=== PATIENT | female | born 1935 | race Caucasian/White ===

== ENCOUNTER 2016-04-11 12:34 | Observation (INO) | payer OTHER ==
[2016-04-11] MEDS ORDERED: NORMAL SALINE 10 ML SYRINGE FLUSH IVP PRN ×2 (12:50→14:22)
[2016-04-11] MEDS ORDERED: ASPIRIN 81 MG (BABY) CHEWABLE TABLET PO ONE (12:50)
[2016-04-11] MEDS ORDERED: Sodium Chloride 0.9% 1,000 ML PRIMARY IV ONE (12:50)
[2016-04-11] MEDS ORDERED: ASPIRIN 81 MG (BABY) CHEWABLE TABLET ONE (13:00)
[2016-04-11] MEDS ORDERED: Sodium Chloride 0.9% 1,000 ML ONE (13:00)
[2016-04-11 13:10] LABS: BASOPHILS # (AUTO) 0.04 10*3/UL; BASOPHILS % (AUTO) 0.3 % (0-1); EOSINOPHILS % (AUTO) 0.3 % (0-8); HEMATOCRIT 47.5 % (37.0-47.0); IMM GRAN % (AUTO) 0.2 % (0-5); IMM GRAN# (AUTO) 0.03 10*3/UL; LYMPHOCYTES % (AUTO) 12.3 % (10-50); MEAN CORPUSCULAR HEMOGLOBIN 33.1 PG (27-31); MEAN CORPUSCULAR HGB CONC 33.7 g/dL (33-37); MEAN PLATELET VOLUME 11.5 FL (7.4-12.2); MONOCYTES # (AUTO) 0.41 10*3/UL (0.3-0.8); NEUTROPHILS # (AUTO) 11.64 10*3/UL; NEUTROPHILS % (AUTO) 83.9 % (50-80); RDW COEFFICIENT OF VARIATION 15.9 % (11.5-14.5); RED BLOOD COUNT 4.84 10^6/uL (4.20-5.40); WHITE BLOOD COUNT 13.86 10^3/uL (4.8-10.8)
--- NOTE | 2016-04-11 13:17 | PDOC ---
Chest Pain HPI - General Chief Complaint: Chest Pain Stated Complaint: chest pain Date Seen by Provider: 04/11/16 Time Seen by Provider: 12:45 Source: Patient Exam Limitations: POSITIVE: No limitations Treatment Prior to Arrival: REPORTS: None Nurse's Notes Reviewed & Considered: Yes - History of Present Illness Initial Comments: The patient is an 80-year-old female who presents to the emergency department with complaints of chest pain with radiation of pain to her back. She states that at approximately 10:30 this morning she had onset of substernal chest pain that radiated to the back between her shoulder blades. She also states she has some unusual sensation on the left side of her face into her left upper arm and neck. She denies any associated headache, shortness of breath, numbness or weakness in her extremities or any other associated symptoms. She has not had symptoms similar to this in the past. She denies any known history of heart disease. She states that currently the pain is primarily located behind her left shoulder blade. She does have a history of hypertension however denies diabetes or hyperlipidemia however she does admit that she has not had her cholesterol checked in quite some time and there is mention of hyperlipidemia in her record.. She has not had any pain or swelling in her lower extremities. She thought that her symptoms were just "indigestion" however became worried and subsequently came here to the emergency department. - Patient Home Medications Home Medications: Home Medications Sennosides [Senna Lax] 4 tab PO DAILY tab 04/10/13 Clonidine HCl 0.1 mg ORAL DAILY #90 tab NS 11/21/15 Metoprolol Succinate 50 mg PO BID #180 tab 11/21/15 Hydrochlorothiazide 25 mg ORAL QD #90 tab 03/20/16 Omeprazole 20 mg ORAL QD #90 capsule 03/20/16 - Patient Allergies Allergies/Adverse Reactions: Allergies Allergy/AdvReac Type Severity Reaction Status Date / Time Penicillins Allergy Intermediate RASH Verified 04/11/16 12:41 Past Medical History - heen HEENT History: Denies History Cardiovascular History: Hypertension, Hyperlipidemia Additional Cardiovasular History: DR WONG AND Tomi TATUM HAVE EVALUATED EKG. OK TO PROCEED WITH SURGERY. POTASSIUM LEVEL IS 3.[address] WONG AND CALLED TO [facility] FOR KCL 10 MEQ BID. PT CALLED AND AWARE TO. START TODAY 10/14/12. Respiratory History: Denies History Gastrointestinal History: GERD Genitourinary History: Denies History Endocrine History: Denies History Musculoskeletal History: Arthritis, Joint Pain, Osteoarthritis Prosthesis or Implant: No Neurological History: Denies History Blood Disorders: Denies History Psychiatric History: Denies History History of Sexually Transmitted Diseases: No Female Reproductive History: Hysterectomy Cancer History: Denies History In Past Year Been Physically Harmed or Verbally Threatened: No History of MDRO: No History of Other Communicable Diseases: No Tobacco Use: Never Smoker Alcohol Use: Rarely Substance Use Type: None Previous Surgical History: Yes Type / Date of Surgery: BLADDER SX/ HYST/ KNEE SCOPE/LISS/ COLONOSCOPY/ INGUINAL HERNIA/ 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 DENIES: Heart Racing, Heart Palpitations, Blood Pressure Problem, Edema Respiratory: DENIES: Hurts To Breathe, Shortness Of Breath Neurological: DENIES: Headache, Numbness, Weakness Gastrointestinal: REPORTS: Denies GI Symptoms Musculoskeletal: REPORTS: Denies MS Symptoms Eyes: REPORTS: Denies Symptoms ENT: REPORTS: Denies Symptoms Skin: DENIES: Rash Chest Pain PE - General Appearance General Appearance: REPORTS: Alert, Cooperative, No Acute Distress - HEENT HEENT: POSITIVE: Head Inspection Nml, Eyes Inspection Nml, Ears Inspection Nml, Nose Inspection Nml - Neck Neck: REPORTS: Normal Inspection. 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 Lab Results Reviewed: Yes Lab Results:: Laboratory Results 04/11/16 Range/Units 12:45 WBC 13.86 H (4.8-10.8) 10^3/uL RBC 4.84 (4.20-5.40) 10^6/uL Hgb 16.0 (12.0-16.0) g/dL Hct 47.5 H (37.0-47.0) % MCV 98.1 (81-99) FL MCH 33.1 H (27-31) PG MCHC 33.7 (33-37) g/dL RDW Std Deviation 56.5 H (39-50) fL RDW Coeff of [place]ona 15.9 H (11.5-14.5) % Plt Count 254 (140-350) 10*3/uL MPV 11.5 (7.4-12.2) FL Immature Gran % (Auto) 0.2 (0-5) % Neut % (Auto) 83.9 H (50-80) % Lymph % (Auto) 12.3 (10-50) % [place] % (Auto) 3.0 L (5-15) % Eos % (Auto) 0.3 (0-8) % Baso % (Auto) 0.3 (0-1) % Immature Gran # (Auto) 0.03 10*3/UL Neut # (Auto) 11.64 10*3/UL Lymph # (Auto) 1.70 10*3/uL [place] # (Auto) 0.41 (0.3-0.8) 10*3/UL Eos # (Auto) 0.04 10*3/UL Baso # (Auto) 0.04 10*3/UL WBC Morphology Comment Normal morphology (NORM) Plt Morphology Comment Normal morphology (NORM) RBC Morph Comment Normal morphology (NORM) D-Dimer 0.42 (0.00-0.59) mg/L Sodium 141 (135-145) meq/L Potassium 3.9 (3.8-5.2) meq/L Chloride 102 (98-112) meq/L Carbon Dioxide 26 (23-33) meq/L Anion Gap 13 (5-20) BUN 23 H (7-22) mg/dL Creatinine 1.0 (0.50-1.20) mg/dL Estimated GFR (>60 ml/min/1.73m(2)) BUN/Creatinine Ratio 23.00 H (6-20) Glucose 119 H (78-110) mg/dL Calculated Osmolality 296.0 H (267-292) mOsm/kg Calcium 10.2 (8.7-10.7) mg/dL Magnesium 1.5 L (1.6-2.4) mg/dL Total Bilirubin 1.0 (0.3-1.2) mg/dL AST 22 (8-39) IU/L ALT 28 (9-52) IU/L Alkaline Phosphatase 79 (38-126) IU/L CK-MB (CK-2) 0.82 (0.00-5.00) NG/DL Troponin I < 0.012 (< 0.040) ng/mL Total Protein 7.0 (6.1-8.0) g/dL Albumin 4.3 (3.5-4.8) g/dL Globulin 2.7 (2.50-4.10) g/dL Albumin/Globulin Ratio 1.50 (1.3-2.0) mg/g Amylase 58 (30-110) U/L Lipase 83 (23-300) IU/L EKG Interpreted/Reviewed By Me:: Yes EKG Interpretation:: POSITIVE: Normal Sinus Rhythm, Normal Rate, Normal Intervals, Normal ST/T - Patient's Progress MDM / ED Course: By the time the patient arrived in the emergency department the substernal chest pain had resolved for the most part, she did still continue to have some pain between her shoulder blades as well as some unusual sensation to the left side of her neck and face. Her initial EKG did not show any acute ST segment or T-wave changes. She was given aspirin per chest pain protocol. Her pain basically resolved while she was here in the emergency room. Her initial blood work reveals a normal d-dimer and normal troponin. Her white blood cell count is mildly elevated. At this point I did recommend that the patient be admitted for continued cardiac monitoring and workup. The patient was in agreement with this plan. Dr. Chance has agreed to admit the patient. - Consult Counseled: POSITIVE: Patient, Family, RE: Lab Results, RE: Radiology Results, RE : DX Patient Care Time - Estimated PCT Patient Care Time (In Minutes): 30 Vital Signs - Recent Vital Signs Vital Signs: Vital Signs (Last 8 hours) Temp Pulse Resp BP Pulse Ox 04/11/16 12:45 98 F 86 12 114/77 94 - VS Reviewed Vital Signs Reviewed: Yes Discharge Clinical Impression: Chest pain Discharge Disposition: Admit to Inpatient Condition: Fair Date Decision to Admit to Inpatient: 04/11/16 Time Decision to Admit to Inpatient: 13:45
[2016-04-11 13:26] LABS: PLATELET MORPHOLOGY COMMENT NORMAL MORPHOLOGY (NORM)
[2016-04-11 13:27] LABS: CALCIUM 10.2 mg/dL (8.7-10.7); POTASSIUM 3.9 meq/L (3.8-5.2)
[2016-04-11 13:31] LABS: MAGNESIUM 1.5 mg/dL (1.6-2.4)
[2016-04-11 13:39] LABS: CREATINE KINASE MB 0.82 NG/DL (0.00-5.00)
[2016-04-11 13:40] LABS: TROPONIN I < 0.012 ng/mL (< 0.040)
[2016-04-11] MEDS ORDERED: NITROGLYCERIN 0.4 MG SL TAB (BOTTLE OF 3) SL PRN (14:22)
[2016-04-11] MEDS ORDERED: ONDANSETRON 4 MG/2 ML VIAL IVP PRN (14:22)
[2016-04-11] MEDS ORDERED: CALCIUM CARBONATE 500 MG (TUMS) CHEWABLE TABLET PO PRN (14:22)
[2016-04-11 15:05] LABS: BILIRUBIN,URINE NEGATIVE (NEG); CLARITY,URINE CLEAR (CLEAR); GLUCOSE, URINE (UA) NEGATIVE (NEG); LEUKOCYTE ESTERASE ,URINE NEGATIVE (NEG); NITRATE,URINE NEGATIVE (NEG); OCCULT BLOOD,URINE NEGATIVE (NEG); PROTEIN,URINE NEGATIVE (NEG); UROBILINOGEN,URINE 0.2 EU/dL (0.2)
[2016-04-11 15:06] LABS: URINE SAMPLE TYPE VOIDED SPECIMEN
[2016-04-11] MEDS: OMEPRAZOLE 20 MG CAPSULE PO SCH (16:12)
[2016-04-11] MEDS: HYDROCHLOROTHIAZIDE 25 MG TABLET PO SCH (16:12)
[2016-04-11] MEDS: HEPARIN 5000 UNIT/1 ML SUBCUT SCH ×2 (16:14→21:56)
[2016-04-11] MEDS ORDERED: HEPARIN 5000 UNIT/1 ML ONE (16:14)
--- NOTE | 2016-04-11 17:11 | PDOC ---
History and Physical - History of Present Illness Date and Time of Service: 04/11/2016, 1710 Chief Complaint: Chest pain History of Present Illness: This very pleasant 80-year-old female with a history of hypertension who comes in stating that she had acute onset of chest pain today that essentially woke her up from sleeping in her lounge her today. She states it was substernal, radiated to the jaw, was associated with a headache, and also her left arm. She 's never had a pain like this before. She thought might be indigestion and try Tums but that did not seem to make it better. She was given some aspirin and the pain got better after that. She did not require nitroglycerin. No shortness of breath with this. No nausea or vomiting. She is not had any prior heart attack or stroke. She does not smoke. Her father had heart disease but still passed on in his 90s. She has a son who recently had a bypass. There were no other exacerbating factors making the pain worse. She is not anxious. Past Medical History Medical History: 1. Hypertension. 2. Osteoarthritis. 3. Osteoporosis? Surgical History: Left shoulder replacement. Bladder surgery. Cholecystectomy 2005. Colonoscopy 2007. Hysterectomy (at age 37). Inguinal Herniorrhaphy. Orthoscopic Knee Surgery 2004. 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 Both parents in their 90s. Past Social History: Does not smoke or drink. Has 5 children. Lives in [place] with her significant other. Tobacco Use: Never Smoker Substance Use Type: None Alcohol Use: None Medication / Allergies Home Medications: Home Medications Medication Instructions Recorded Confirmed Type Sennosides [Senna Lax] 4 tab PO DAILY tab 04/10/13 04/11/16 History Clonidine HCl 0.1 mg ORAL DAILY #90 tab NS 11/21/15 04/11/16 Clinic Metoprolol Succinate 50 mg PO BID #180 tab 11/21/15 04/11/16 Clinic Hydrochlorothiazide 25 mg ORAL QD #90 tab 03/20/16 04/11/16 Clinic Omeprazole 20 mg ORAL QD #90 capsule 03/20/16 04/11/16 Clinic Allergies/Adverse Reactions: Allergies Allergy/AdvReac Type Severity Reaction Status Date / Time Penicillins Allergy Intermediate RASH Verified 04/11/16 12:41 Review of Systems - Review of Systems All Systems: Reviewed & No Additional Complaints Except as Stated (I did a 12 point review systems and it is negative other than that discussed in history present illness and that noted below.) - Cardiovascular Cardiovascular: REPORTS: See HPI - Musculoskeletal Musculoskeletal: REPORTS: Back Pain, Joint Pain - Knees - Neurological Neurologic: REPORTS: Headache (Remote history of migraine headaches.) Exam - Vitals Vital Signs: Vital Signs Temperature 97.8 F Temperature Source Temporal Artery Scan Pulse Rate [Pulse Oximeter] 74 Pulse Rate 86 Respiratory Rate 16 Blood Pressure [Left Arm] 143/85 Pulse Ox 96 Oxygen Delivery Method Room Air Height 5 ft 4 in Weight 163 lb - General General Appearance: POSITIVE: No Acute Distress, Cooperative - Head Head Exam: POSITIVE: Normal Inspection, Normocephalic, Atraumatic - Eye Eye Exam: POSITIVE: No Scleral Icterus - ENT ENT Exam: POSITIVE: Mucous Membranes Moist - Neck Neck Exam: POSITIVE: Normal Inspection, No Tenderness, No Thyromegaly - Respiratory Respiratory Exam: POSITIVE: Clear to Auscultation - Bilaterally, Breathing Non Labored, Normal to Percussion and Palpation - Cardiovascular Cardiovascular Exam: POSITIVE: RRR, No Clicks, No Gallops, No Rubs, Systolic Murmur, No JVD - GI/Abdominal GI/Abdominal Exam: POSITIVE: Normal Bowel Sounds, Non Tender, Non Distended, Soft - Rectal Rectal Exam: POSITIVE: Deferred - External Exam: POSITIVE: Deferred Exam: POSITIVE: Deferred - Extremities Extremities Exam: POSITIVE: No Clubbing Present, No Edema Present, No Cyanosis Present - Back Back Exam: POSITIVE: No CVA Tenderness - Neurological Neurological Exam: POSITIVE: Alert, Oriented x 3, No Facial Droop, Speech Intact / Clear, Moves All Extremities Equally - Psychiatric Psychiatric Exam: POSITIVE: Normal Affect, Normal Mood - Integumentary Integumentary Exam: POSITIVE: Normal Color, Warm, Dry, Intact Results - Labs CBC and BMP: 04/11/16 12:45 04/11/16 12:45 Labs - Last 24 Hours: Laboratory Results 04/11/16 Range/Units 14:50 Ur Collection Type Voided specimen Urine Color Yellow Urine Clarity Clear (CLEAR) Urine pH 5.0 (5.0-8.5) Ur Specific [place] 1.010 (1.005-1.030) Urine Protein Negative (NEG) mg/dl Urine Glucose (UA) Negative (NEG) mg/dL Urine Ketones Negative (NEG) Urine Occult Blood Negative (NEG) Urine Nitrate Negative (NEG) Urine Bilirubin Negative (NEG) Urine Urobilinogen 0.2 (0.2) EU/dL Ur Leukocyte Esterase Negative (NEG) Ur Culture Indicated? Culture not set Laboratory Results 04/11/16 04/11/16 Range/Units 12:45 14:50 WBC 13.86 H (4.8-10.8) 10^3/uL RBC 4.84 (4.20-5.40) 10^6/uL Hgb 16.0 (12.0-16.0) g/dL Hct 47.5 H (37.0-47.0) % MCV 98.1 (81-99) FL MCH 33.1 H (27-31) PG MCHC 33.7 (33-37) g/dL RDW Std Deviation 56.5 H (39-50) fL RDW Coeff of Ramona 15.9 H (11.5-14.5) % Plt Count 254 (140-350) 10*3/uL MPV 11.5 (7.4-12.2) FL Immature Gran % (Auto) 0.2 (0-5) % Neut % (Auto) 83.9 H (50-80) % Lymph % (Auto) 12.3 (10-50) % [place] % (Auto) 3.0 L (5-15) % Eos % (Auto) 0.3 (0-8) % Baso % (Auto) 0.3 (0-1) % Immature Gran # (Auto) 0.03 10*3/UL Neut # (Auto) 11.64 10*3/UL Lymph # (Auto) 1.70 10*3/uL [place] # (Auto) 0.41 (0.3-0.8) 10*3/UL Eos # (Auto) 0.04 10*3/UL Baso # (Auto) 0.04 10*3/UL WBC Morphology Comment Normal morphology (NORM) Plt Morphology Comment Normal morphology (NORM) RBC Morph Comment Normal morphology (NORM) D-Dimer 0.42 (0.00-0.59) mg/L Sodium 141 (135-145) meq/L Potassium 3.9 (3.8-5.2) meq/L Chloride 102 (98-112) meq/L Carbon Dioxide 26 (23-33) meq/L Anion Gap 13 (5-20) BUN 23 H (7-22) mg/dL Creatinine 1.0 (0.50-1.20) mg/dL Estimated GFR (>60 ml/min/1.73m(2)) BUN/Creatinine Ratio 23.00 H (6-20) Glucose 119 H (78-110) mg/dL Calculated Osmolality 296.0 H (267-292) mOsm/kg Calcium 10.2 (8.7-10.7) mg/dL Magnesium 1.5 L (1.6-2.4) mg/dL Total Bilirubin 1.0 (0.3-1.2) mg/dL AST 22 (8-39) IU/L ALT 28 (9-52) IU/L Alkaline Phosphatase 79 (38-126) IU/L CK-MB (CK-2) 0.82 (0.00-5.00) NG/DL Troponin I < 0.012 (< 0.040) ng/mL Total Protein 7.0 (6.1-8.0) g/dL Albumin 4.3 (3.5-4.8) g/dL Globulin 2.7 (2.50-4.10) g/dL Albumin/Globulin Ratio 1.50 (1.3-2.0) mg/g Amylase 58 (30-110) U/L Lipase 83 (23-300) IU/L Ur Collection Type Voided specimen Urine Color Yellow Urine Clarity Clear (CLEAR) Urine pH 5.0 (5.0-8.5) Ur Specific [place] 1.010 (1.005-1.030) Urine Protein Negative (NEG) mg/dl Urine Glucose (UA) Negative (NEG) mg/dL Urine Ketones Negative (NEG) Urine Occult Blood Negative (NEG) Urine Nitrate Negative (NEG) Urine Bilirubin Negative (NEG) Urine Urobilinogen 0.2 (0.2) EU/dL Ur Leukocyte Esterase Negative (NEG) Ur Culture Indicated? Culture not set - EKG Data -: EKG Interpreted by Me Rate: Normal EKG Shows Normal: Sinus Rhythm - EKG Data EKG Interpretation: Nonspecific ST-T Wave Changes (T-wave inversions noted in lead 3.) - Imaging Status: Image Reviewed by Me (Chest x-ray, is negative for pneumonia or acute cardiopulmonary disease process, hardware from left shoulder replacement noted.) Assessment and Plan - Patient Problems (1) Chest pain Current Visit: Yes Status: Acute (2) Hypertension Current Visit: Yes Status: Acute Qualifiers: Hypertension type: essential hypertension Qualified Description: Essential hypertension Qualifier Code(s): (I10) Essential (primary) hypertension (3) Arthritis Current Visit: Yes Status: Acute - Assessment / Plan Additional Assessment/Plan Details: Plan: 1. Do serial enzymes and EKG if necessary 2. Aspirin and continue beta mariah. Does not appear to be unstable angina so hold off on aggressive Lovenox therapy. Heparin for DVT prophylaxis however. 3. We'll have the patient do a stress test chemical 4. Proton pump inhibitor 5. Nitroglycerin when necessary for chest pain 6. Oxygen if necessary 8. If testing indicates further need for evaluation, discussion with cardiology. If testing is negative for myocardial infarction and no further indication for coronary artery disease, consider outpatient workup for GI source , pulmonary source, or other. Reassuring that d-dimer is negative. I discussed the above plan with the patient and she states that this sounds continue her. She is DO NOT RESUSCITATE.
[2016-04-11] MEDS ORDERED: Magnesium Sulfate 2gm (Premix) 2 GM in Premix 1 BAG IV ONE (17:40)
[2016-04-11] MEDS ORDERED: MAGNESIUM SULFATE 1 GM IV ONE (18:19)
[2016-04-11] MEDS ORDERED: Magnesium Sulfate 2gm (Premix) 50 ML IV ONE (18:20)
[2016-04-11] MEDS ORDERED: LORazepam 1 MG TABLET PO ONE (18:44)
[2016-04-11] MEDS ORDERED: Zolpidem Tab 5 MG TAB PO PRN (19:15)
[2016-04-11] MEDS ORDERED: LORazepam 1 MG TABLET PO PRN (19:51)
[2016-04-11] MEDS ORDERED: LORazepam 1 MG TABLET ONE (20:34)
[2016-04-11] MEDS: METOPROLOL SUCCINATE 50 MG SR 24H TABLET PO SCH (20:49)
[2016-04-11] MEDS ORDERED: Senna Tab 8.6 MG TAB PO SCH (21:00)
--- NOTE | 2016-04-12 04:23 | DI ---
AP CHEST X-RAY, 04/11/2016 11:51 AM : Clinical History: Chest pain. Previous Exam: None at this facility. There is no acute soft tissue or bony abnormality. The heart size is normal for this projection. The right diaphragm remains elevated. There is no acute infiltrate or effusion. Mediastinal structures ar e normal. There are no pulmonary nodules. Reading: Normal chest x-ray. There has been no interval change.
[2016-04-12] MEDS: HEPARIN 5000 UNIT/1 ML SUBCUT SCH ×2 (05:50→14:22)
[2016-04-12 06:42] LABS: LDL CHOLESTEROL,CALCULATED 64.6 mg/dL
[2016-04-12 06:48] VITALS: RESP 18; TEMP 97.4
[2016-04-12] MEDS ORDERED: CloNIDine Tab 0.1 MG TABLET PO SCH (09:00)
[2016-04-12] MEDS ORDERED: ASPIRIN EC 81 MG TABLET PO SCH (09:00)
[2016-04-12] MEDS ORDERED: Senna Tab 8.6 MG TAB PO SCH (09:00)
[2016-04-12] MEDS: OMEPRAZOLE 20 MG CAPSULE PO SCH (09:21)
[2016-04-12] MEDS: METOPROLOL SUCCINATE 50 MG SR 24H TABLET PO SCH (09:21)
[2016-04-12] MEDS: HYDROCHLOROTHIAZIDE 25 MG TABLET PO SCH (09:22)
[2016-04-12] MEDS ORDERED: LORazepam 1 MG TABLET PO ONE (09:26)
--- NOTE | 2016-04-12 09:26 | PDOC(PROG) ---
Date and Time of Service: 04/12/2016 9 am Interval History: Subjective Patient came into the hospital yesterday with an episode of pain in the chest she said she was sleeping and then she woke up with some pain in the chest went to the back and to the side of the face there was some nausea with it. Pain lasted for about an hour. Never had it before. She said when she woke up with the pain she started walking around to see if that make a difference to her pain and that did not make her pain worse. Today she is denying symptoms. Objective : Data - Labs CBC and BMP: 04/11/16 12:45 04/11/16 12:45 Labs - Last 24 Hours: Laboratory Results 04/11/16 04/11/16 04/12/16 Range/Units 14:50 19:54 00:29 Magnesium (1.6-2.4) mg/dL Troponin I < 0.012 < 0.012 (< 0.040) ng/mL Triglycerides (44-200) mg/dL Cholesterol (120-200) mg/dL LDL Cholesterol, Calc mg/dL VLDL Cholesterol (0-40) mg/dL HDL Cholesterol (40-150) mg/dL Cholesterol/HDL Ratio (0-4.0) RATIO Ur Collection Type Voided specimen Urine Color Yellow Urine Clarity Clear (CLEAR) Urine pH 5.0 (5.0-8.5) Ur Specific [place] 1.010 (1.005-1.030) Urine Protein Negative (NEG) mg/dl Urine Glucose (UA) Negative (NEG) mg/dL Urine Ketones Negative (NEG) Urine Occult Blood Negative (NEG) Urine Nitrate Negative (NEG) Urine Bilirubin Negative (NEG) Urine Urobilinogen 0.2 (0.2) EU/dL Ur Leukocyte Esterase Negative (NEG) Ur Culture Indicated? Culture not set 04/12/16 Range/Units 06:24 Magnesium 2.0 (1.6-2.4) mg/dL Troponin I (< 0.040) ng/mL Triglycerides 272 H (44-200) mg/dL Cholesterol 157 D (120-200) mg/dL LDL Cholesterol, Calc 64.600 mg/dL VLDL Cholesterol 54 H (0-40) mg/dL HDL Cholesterol 38 L (40-150) mg/dL Cholesterol/HDL Ratio 4.13 H (0-4.0) RATIO Ur Collection Type Urine Color Urine Clarity (CLEAR) Urine pH (5.0-8.5) Ur Specific [place] (1.005-1.030) Urine Protein (NEG) mg/dl Urine Glucose (UA) (NEG) mg/dL Urine Ketones (NEG) Urine Occult Blood (NEG) Urine Nitrate (NEG) Urine Bilirubin (NEG) Urine Urobilinogen (0.2) EU/dL Ur Leukocyte Esterase (NEG) Ur Culture Indicated? Objective : Exam - General General Appearance: No Acute Distress, Cooperative - Head Head Exam: Normal Inspection, Atraumatic - Eye Eye Exam: Normal Appearance - ENT ENT Exam: Normal Exam - Neck Neck Exam: Normal Inspection - Respiratory Respiratory Exam: Clear to Auscultation - Bilaterally - Cardiovascular Cardiovascular Exam: RRR, Systolic Murmur - GI/Abdominal GI/Abdominal Exam: Normal Bowel Sounds, Non Tender, Non Distended, Soft - Rectal Rectal Exam: Deferred - External Exam: Deferred Exam: Deferred - Extremities Extremities Exam: Normal Inspection - Back Back Exam: Normal Inspection - Neurological Neurological Exam: Alert, Oriented x 3, CN II-XII Intact, Moves All Extremities Equally Assessment and Plan - Patient Problems (1) Chest pain Current Visit: Yes Status: Acute Comment: This is resolved. Looks atypical pain. Her enzymes are negative. Prior to doing the stress test the blood pressure was elevated so she was given the clonidine and her blood pressure decreased and we went ahead with the test. Results are pending. No significant EKG changes noted from baseline. (2) Hypertension Current Visit: Yes Status: Acute Comment: Blood pressure was elevated but she was anxious before the test. She did get the clonidine will give her the rest of her medication later on today. Qualifiers: Hypertension type: essential hypertension Qualified Description: Essential hypertension Qualifier Code(s): (I10) Essential (primary) hypertension
--- NOTE | 2016-04-12 12:25 | STRESSTEST ---
[facility] Interpretive Statements Patient had Lexiscan stress test per protocol, her baseline BP was 178/94, heart rate was 90, baseline EKG non specific ST changes noted., after infusion patinet had some headache with nausea, that improved gradually, no chest pain. no signifcant EKG changes noted from baseline. , Conclusion No signifcant EKG changes from baseline, await nuclear scan results. Electronically Signed On 04-13-16 09:57:44 MST by Bryan Panchal MD [email or web address]
--- NOTE | 2016-04-12 14:55 | DI ---
HISTORY: Chest pain PREVIOUS EXAM: None at this facility. TECHNIQUE: The patient was stressed by Dr. Suzie Lanza The standard Lexiscan protocol was used. Please see the Doctor's report. At the designated time, 33.5 mCi of 99Tc-sestimibi was injected IV. Stress gated tomograms were acquired within one hour of the i njection. For the resting scans, 32.0 mCi was injected IV and resting gated tomograms were acquired in similar fashion. Stress scans were performed on April 11, 2016; the resting scans were performed on April 12, 2016 . FINDINGS: Quantitative and qualitative analyses were performed. Quantitative analysis was performed with the [facility] [id number] protocols. Very low dose limited CT scans of the chest are obtained through the level of the heart for attenuation correction of the gated stress and rest cardiac SPECT data. Non-attenuated and attenuated scans were processed for review, and the atten uated scans were used for final interpretation of this study. Review of the raw data images and manufacturing quality engineer files indicate that these series of examinations ar e of excellent quality. Stress and rest left ventricular chamber sizes are normal. Stress and rest LV EF are 73 % and 75 %, respectively. There is a medium-sized fixed defect involving the apex and mid slices around the apex without any re versibility. Transient ischemic dilatation ratio is 1.28, with a normal range up to 1.22 for patients stressed with the Ron protocol and up to 1.33 for patients stressed with the Lexiscan protocol. The very low dose CT scans through the level of the heart multiple coronary artery calcifications wit h some peripheral vascular calcifications. There is no adenopathy or evidence of lung nodules. IMPRESSION: 1. Multiple coronary artery calcifications with an apical fixed defect with no evidence of ischemia. 2. Normal wall motion with an ejection fraction of 75%.
--- NOTE | 2016-04-12 15:27 | DCSUMMARY ---
Hospitalization Summary Admit Date: 04/11/16 Discharge Date: 04/12/16 Hospital Course: Discharge diagnosis 1. Episode of chest pain resolved, enzymes negative, stress test no evidence of reversible defect 2. Multiple coronary artery calcification with an apical fixed defect with no evidence of ischemia 3. History of hypertension 4. Osteoarthritis Hospital course This is an 80 years old female with medical history significant for history of hypertension who came to the hospital because of history of chest pain that woke her up from sleep the pain was substernal radiated to the jaw there was some headache and nausea. She never had this before. She did try some Tums but that didn't help and she came into the ER she was given aspirin and that's helped her pain and she was admitted. She was visited by Dr. Rizzo please see his note exam was not remarkable. Her EKG showed nonspecific changes. Her chest x-ray was negative. Her enzymes repeated were negative. She did have a Lexiscan which showed medium-sized fixed defect involving the apex and mid slices around the apex without any reversibility. Multiple coronary artery calcification noted. Ejection fraction was 75%. When I saw her she denied symptoms and her exam was remarkable for systolic murmur that was old. Because of the finding of the Lexiscan I did speak with the hair stylist Dr. Barber and he said he'll see her as an outpatient. We did put her on aspirin. I did tell her that if she developed the pain she need to come back to the ER. She is normally on a beta mariah. Her cholesterol including LDL was normal. Laboratory Results 04/11/16 04/11/16 04/11/16 Range/Units 12:45 14:50 19:54 WBC 13.86 H (4.8-10.8) 10^3/uL RBC 4.84 (4.20-5.40) 10^6/uL Hgb 16.0 (12.0-16.0) g/dL Hct 47.5 H (37.0-47.0) % MCV 98.1 (81-99) FL MCH 33.1 H (27-31) PG MCHC 33.7 (33-37) g/dL RDW Std Deviation 56.5 H (39-50) fL RDW Coeff of Ramona 15.9 H (11.5-14.5) % Plt Count 254 (140-350) 10*3/uL MPV 11.5 (7.4-12.2) FL Immature Gran % (Auto) 0.2 (0-5) % Neut % (Auto) 83.9 H (50-80) % Lymph % (Auto) 12.3 (10-50) % [place] % (Auto) 3.0 L (5-15) % Eos % (Auto) 0.3 (0-8) % Baso % (Auto) 0.3 (0-1) % Immature Gran # (Auto) 0.03 10*3/UL Neut # (Auto) 11.64 10*3/UL Lymph # (Auto) 1.70 10*3/uL [place] # (Auto) 0.41 (0.3-0.8) 10*3/UL Eos # (Auto) 0.04 10*3/UL Baso # (Auto) 0.04 10*3/UL WBC Morphology Comment Normal morphology (NORM) Plt Morphology Comment Normal morphology (NORM) RBC Morph Comment Normal morphology (NORM) D-Dimer 0.42 (0.00-0.59) mg/L Sodium 141 (135-145) meq/L Potassium 3.9 (3.8-5.2) meq/L Chloride 102 (98-112) meq/L Carbon Dioxide 26 (23-33) meq/L Anion Gap 13 (5-20) BUN 23 H (7-22) mg/dL Creatinine 1.0 (0.50-1.20) mg/dL Estimated GFR (>60 ml/min/1.73m(2)) BUN/Creatinine Ratio 23.00 H (6-20) Glucose 119 H (78-110) mg/dL Calculated Osmolality 296.0 H (267-292) mOsm/kg Calcium 10.2 (8.7-10.7) mg/dL Magnesium 1.5 L (1.6-2.4) mg/dL Total Bilirubin 1.0 (0.3-1.2) mg/dL AST 22 (8-39) IU/L ALT 28 (9-52) IU/L Alkaline Phosphatase 79 (38-126) IU/L CK-MB (CK-2) 0.82 (0.00-5.00) NG/DL Troponin I < 0.012 < 0.012 (< 0.040) ng/mL Total Protein 7.0 (6.1-8.0) g/dL Albumin 4.3 (3.5-4.8) g/dL Globulin 2.7 (2.50-4.10) g/dL Albumin/Globulin Ratio 1.50 (1.3-2.0) mg/g Triglycerides (44-200) mg/dL Cholesterol (120-200) mg/dL LDL Cholesterol, Calc mg/dL VLDL Cholesterol (0-40) mg/dL HDL Cholesterol (40-150) mg/dL Cholesterol/HDL Ratio (0-4.0) RATIO Amylase 58 (30-110) U/L Lipase 83 (23-300) IU/L Ur Collection Type Voided specimen Urine Color Yellow Urine Clarity Clear (CLEAR) Urine pH 5.0 (5.0-8.5) Ur Specific [place] 1.010 (1.005-1.030) Urine Protein Negative (NEG) mg/dl Urine Glucose (UA) Negative (NEG) mg/dL Urine Ketones Negative (NEG) Urine Occult Blood Negative (NEG) Urine Nitrate Negative (NEG) Urine Bilirubin Negative (NEG) Urine Urobilinogen 0.2 (0.2) EU/dL Ur Leukocyte Esterase Negative (NEG) Ur Culture Indicated? Culture not set 04/12/16 04/12/16 Range/Units 00:29 06:24 WBC (4.8-10.8) 10^3/uL RBC (4.20-5.40) 10^6/uL Hgb (12.0-16.0) g/dL Hct (37.0-47.0) % MCV (81-99) FL MCH (27-31) PG MCHC (33-37) g/dL RDW Std Deviation (39-50) fL RDW Coeff of Ramona (11.5-14.5) % Plt Count (140-350) 10*3/uL MPV (7.4-12.2) FL Immature Gran % (Auto) (0-5) % Neut % (Auto) (50-80) % Lymph % (Auto) (10-50) % [place] % (Auto) (5-15) % Eos % (Auto) (0-8) % Baso % (Auto) (0-1) % Immature Gran # (Auto) 10*3/UL Neut # (Auto) 10*3/UL Lymph # (Auto) 10*3/uL [place] # (Auto) (0.3-0.8) 10*3/UL Eos # (Auto) 10*3/UL Baso # (Auto) 10*3/UL WBC Morphology Comment (NORM) Plt Morphology Comment (NORM) RBC Morph Comment (NORM) D-Dimer (0.00-0.59) mg/L Sodium (135-145) meq/L Potassium (3.8-5.2) meq/L Chloride (98-112) meq/L Carbon Dioxide (23-33) meq/L Anion Gap (5-20) BUN (7-22) mg/dL Creatinine (0.50-1.20) mg/dL Estimated GFR (>60 ml/min/1.73m(2)) BUN/Creatinine Ratio (6-20) Glucose (78-110) mg/dL Calculated Osmolality (267-292) mOsm/kg Calcium (8.7-10.7) mg/dL Magnesium 2.0 (1.6-2.4) mg/dL Total Bilirubin (0.3-1.2) mg/dL AST (8-39) IU/L ALT (9-52) IU/L Alkaline Phosphatase (38-126) IU/L CK-MB (CK-2) (0.00-5.00) NG/DL Troponin I < 0.012 (< 0.040) ng/mL Total Protein (6.1-8.0) g/dL Albumin (3.5-4.8) g/dL Globulin (2.50-4.10) g/dL Albumin/Globulin Ratio (1.3-2.0) mg/g Triglycerides 272 H (44-200) mg/dL Cholesterol 157 D (120-200) mg/dL LDL Cholesterol, Calc 64.600 mg/dL VLDL Cholesterol 54 H (0-40) mg/dL HDL Cholesterol 38 L (40-150) mg/dL Cholesterol/HDL Ratio 4.13 H (0-4.0) RATIO Amylase (30-110) U/L Lipase (23-300) IU/L Ur Collection Type Urine Color Urine Clarity (CLEAR) Urine pH (5.0-8.5) Ur Specific [place] (1.005-1.030) Urine Protein (NEG) mg/dl Urine Glucose (UA) (NEG) mg/dL Urine Ketones (NEG) Urine Occult Blood (NEG) Urine Nitrate (NEG) Urine Bilirubin (NEG) Urine Urobilinogen (0.2) EU/dL Ur Leukocyte Esterase (NEG) Ur Culture Indicated? Discharge instruction Diet regular Activity as started Medications Home Medications Medication Instructions Recorded Confirmed Type Sennosides [Senna Lax] 4 tab PO DAILY tab 04/10/13 04/11/16 History Clonidine HCl 0.1 mg ORAL DAILY #90 tab NS 11/21/15 04/11/16 Clinic Metoprolol Succinate 50 mg PO BID #180 tab 11/21/15 04/11/16 Clinic Hydrochlorothiazide 25 mg ORAL QD #90 tab 03/20/16 04/11/16 Clinic Omeprazole 20 mg ORAL QD #90 capsule 03/20/16 04/11/16 Clinic Aspirin EC 81 mg PO DAILY tab 04/12/16 Rx Follow-up with Dr. Barber coming week, with PCP in 1-2 weeks Condition at discharge was stable for discharge Exam - Vitals Vital Signs: Vital Signs Temperature 97.4 F Temperature Source Temporal Artery Scan Pulse Rate [Apical] 78 Pulse Rate [Pulse Oximeter] 76 Pulse Rate 77 Respiratory Rate 18 Blood Pressure [Left Arm] 126/77 Pulse Ox 92 Oxygen Delivery Method Room Air Height 5 ft 4 in Weight 162 lb 6.4 oz Patient Problems - Patient Problem List (1) Chest pain Status: Acute (2) Hypertension Status: Acute Qualifiers: Hypertension type: essential hypertension Qualified Description: Essential hypertension Qualifier Code(s): (I10) Essential (primary) hypertension
--- NOTE | 2016-04-13 11:08 | EKG ---
[address] [place] [address] Measurements Intervals [place] Rate: 81 P: 28 UT: 216 QRS: -26 QRSD: 106 T: -18 QT: 358 QTc: 396 Interpretive Statements SINUS RHYTHM WITH FIRST DEGREE AV BLOCK BORDERLINE LEFT AXIS DEVIATION [QRS AXIS < -20] Baseline interference limits reading VOLTAGE CRITERIA FOR LVH [MEETS CRITERIA IN ONE OF: R(aVL), S(V1), R(V5), R(V5/V6)+S(V1)] Compared to ECG 10/07/2012 12:38:50 Left ventricular hypertrophy now present T-wave abnormality no longer present Electronically Signed On 04-13-16 11:44:51 MST by Bryan Panchal MD [email or web address]
== END 2016-04-12 15:45 | disposition home or self-care (01) ==
LOC: ER 12:34 → MED/SURG 13:59 → UNDOADMOB 13:59 → MED/SURG 14:00
PROVIDERS: ADMIT Family Medicine; ATTEND Family Medicine
DX: R07.89 Other chest pain (principal); I25.10 Atherosclerotic heart disease of native coronary artery without angina pectoris; I10 Essential (primary) hypertension
CPT/HCPCS: 36415 ×2; 71010; 78452; 80053; 80061; 81003; 82150; 82553; 83690; 83735 ×2; 84484 ×2; 85025; 85379; 93005; 93010; 93016; 93017; 93018; 99284 ×2; A9500; J2785; J1644; J3475; J7030

== ENCOUNTER → 2016-06-19 | Outpatient (CLI) | payer OTHER | LOC: MMPC 09:00 | DX: J02.0 Streptococcal pharyngitis (principal) | CPT/HCPCS: 99212; G0463 ==

== ENCOUNTER → 2016-06-30 | Outpatient (CLI) | payer OTHER ==
--- NOTE | 2016-06-30 14:35 | DI ---
PA /LATERAL CHEST X-RAY, 06/30/2016 1:17 PM : Clinical History: Cough. Previous Exam: 04/11/2016. There is no acute soft tissue or bony abnormality. The patient is status post reverse total left shou lder replacement. There is cardiomegaly without CHF. Lungs are clear. Mediastinal structures are norm al. There are no pulmonary nodules. Readin. There is no acute infiltrate or effusion. 2. Cardiomegaly without CHF.
== END ==
LOC: MOB RAD 13:18
PROVIDERS: ATTEND Physician Assistant
DX: R05 Cough (principal)
CPT/HCPCS: 71020

== ENCOUNTER 2017-04-27 08:00 | Inpatient (IN) ==
[2017-05-04] MEDS ORDERED: Lactated Ringers 1,000 ML PRIMARY IV ONE (05:59)
[2017-05-04] MEDS ORDERED: CLINDAMYCIN IV ONE (05:59)
[2017-05-04] MEDS ORDERED: TRANEXAMIC ACID 1,000 MG / 10 ML VIAL ONE (05:59)
[2017-05-04] MEDS ORDERED: LIDOCAINE W/ SODIUM BICARB 0.5 ML SYR ONE (05:59)
[2017-05-04] MEDS ORDERED: Tranexamic Acid 1,000 MG in Sodium Chloride 0.9% 100 ML IV SCH (06:00)
[2017-05-04] MEDS ORDERED: Ketorolac Inj 30 MG, Morphine Inj 5 MG, BUPivacaine Inj 0.25% PF 150 MG SPLASH ONE ×3 (06:00)
[2017-05-04] MEDS ORDERED: BUPivacaine Liposome/PF (Exparel) Inj 20ml vial INFIL ONE ×2 (06:00→06:52)
[2017-05-04] MEDS ORDERED: LIDOCAINE W/ SODIUM BICARB 0.5 ML SYR SUBD ONE (06:00)
[2017-05-04] MEDS ORDERED: Lactated Ringers 1,000 ML PRIMARY IV SCH (06:00)
[2017-05-04] MEDS ORDERED: Clindamycin 900mg (Premix) 900 MG/50 ML BAG IV ONE (06:00)
[2017-05-04 06:31] LABS: BILIRUBIN,URINE NEGATIVE (NEG); CLARITY,URINE CLEAR (CLEAR); COLOR,URINE YELLOW (Y); GLUCOSE, URINE (UA) NEGATIVE (NEG); OCCULT BLOOD,URINE NEGATIVE (NEG); PROTEIN,URINE NEGATIVE (NEG); UROBILINOGEN,URINE 0.2 EU/dL (0.2)
[2017-05-04 06:35] LABS: BACTERIA,URINE FEW; RBC,URINE 0 /hpf; SQUAMOUS EPITHELIAL CELL,UR MODERATE; URINE SAMPLE TYPE CLEAN CATCH URINE
[2017-05-04] MEDS ORDERED: Sodium Chloride 0.9% 0 ML ONE ×2 (06:40)
[2017-05-04] MEDS ORDERED: Sodium Chloride 0.9% vial 0 ML ONE (06:51)
[2017-05-04] MEDS ORDERED: Gentamicin Inj 40 MG/ML VIAL ONE (06:51)
[2017-05-04] MEDS ORDERED: HEPARIN 10,000 UNIT/1 ML ONE (06:52)
[2017-05-04] MEDS ORDERED: fentaNYL Inj 100 MCG/2 ML VIAL IVP PRN (07:05)
[2017-05-04] MEDS ORDERED: ATROPINE SULFATE 0.4 MG/1 ML VIAL IVP PRN (07:05)
[2017-05-04] MEDS ORDERED: HYDROmorphone 2 MG/1 ML IVP PRN (07:05)
[2017-05-04] MEDS ORDERED: Ondansetron ODT Tab 8 MG TAB PO PRN (07:05)
[2017-05-04] MEDS ORDERED: NORMAL SALINE 10 ML SYRINGE FLUSH IVP PRN (07:05)
[2017-05-04] MEDS ORDERED: ONDANSETRON 4 MG/2 ML VIAL IVP PRN (07:05)
[2017-05-04 07:34] VITALS: BP 140/99; RESP 20; TEMP 98.8; O2SAT 94
== END 2017-05-04 08:12 | disposition home or self-care (01) | DRG 951 ==
LOC: OPS 05-04 06:06
PROVIDERS: ADMIT Orthopaedic Surgery; ATTEND Orthopaedic Surgery